=== PATIENT | male | born 1985 ===

== ENCOUNTER 2020-01-13 07:21 | Outpatient (CLI) | payer BC, SELFPAY ==
[2020-01-16 23:28] LABS: SARS-CoV-2 RNA Undetected (Undetected); SARS-CoV-2 Specimen Source Nasopharynx
== END 2020-01-13 07:41 ==
PROVIDERS: Visit Provider Family Medicine
DX: Z20.9 Contact with and (suspected) exposure to unspecified communicable disease (principal)
CPT/HCPCS: U0003

== ENCOUNTER 2020-04-13 15:14 | Outpatient (REF) | payer BC, SELFPAY ==
[2020-04-13 16:46] LABS: Abs Immature Grans 0.02 10^3/uL (0.0-0.06); Absolute Basophil Count 0.04 10^3/uL (0.0-0.2); Absolute Eosinophil Count 0.15 10^3/uL (0.0-0.7); Absolute Lymphocyte Count 2.15 10^3/uL (1.2-3.4); Absolute Monocyte Count 0.49 10^3/uL (0.1-0.8); Absolute Neutrophil Count 3.65 10^3/uL (1.2-6.7); Basophils % 0.6; Eosinophils % 2.3; HCT 41.2 % (40.0-50.0); HGB 14.4 g/dL (13.5-17.5); Immature Grans % 0.3; Lymphocytes % 33.1; MCH 30.1 pg (27.0-33.0); MPV 11.2 fL (8.0-11.0); Monocytes % 7.5; Neutrophils % 56.2; Nucleated RBC 0 %; Platelet Count 190 10^3/uL (130-400); RBC 4.79 10^6/uL (4.36-5.78); RDW 12.3 % (11.8-14.1); RDW-SD 38.8 fL
[2020-04-13 16:57] LABS: ALT 39 U/L (16-63); AST 22 U/L (15-37); Albumin 4.4 g/dL (3.4-5.0); Alkaline Phosphatase 66 U/L (46-116); BUN 23 mg/dL (7-18); Bilirubin, Total 0.3 mg/dL (0.2-1.0); Chloride 104 mmol/L (98-107); Glucose 96 mg/dL (74-106); Potassium 4.2 mmol/L (3.5-5.1); Sodium 138 mmol/L (136-145); Total Protein 7.4 g/dL (6.4-8.2)
[2020-04-27 10:55] LABS: IgA 239 mg/dL
[2020-04-27 10:56] LABS: Interpretation See Comments
[2020-04-27 10:57] LABS: Tissue Transglutaminase IgA >100.0 U/mL (<4.0)
== END 2020-04-13 15:34 ==
LOC: LBN 15:14
PROVIDERS: PCP Family Medicine; Visit Provider Surgery
DX: K58.0 Irritable bowel syndrome with diarrhea (principal); R10.84 Generalized abdominal pain; K52.9 Noninfective gastroenteritis and colitis, unspecified; K62.5 Hemorrhage of anus and rectum
CPT/HCPCS: 80053; 82784; 83516; 85025

== ENCOUNTER 2021-05-21 02:43 | Outpatient (CLI) | payer BC, SELFPAY ==
[2021-05-21 22:53] LABS: COVID-19 RT-PCR UVMMC Result Negative (Negative)
[2021-05-21 23:43] LABS: Influenza A RNA Result Positive (Negative); Influenza B RNA Result Negative (Negative); RSV RNA Result Negative (Negative)
== END 2021-05-21 02:44 | disposition home or self-care (01) ==
LOC: LBO 02:44
PROVIDERS: PCP Family Medicine; Visit Provider Neuromusculoskeletal Medicine & OMM
DX: Z20.822 Contact with and (suspected) exposure to COVID-19 (principal); R50.9 Fever, unspecified
CPT/HCPCS: 87449; 87631; U0003

== ENCOUNTER 2023-03-25 05:27 | Outpatient (CLI) | payer BC, SELFPAY ==
[2023-03-25 14:57] LABS: Abs Immature Grans 0.03 10^3/uL (0.0-0.06); Absolute Basophil Count 0.03 10^3/uL (0.0-0.2); Absolute Eosinophil Count 0.16 10^3/uL (0.0-0.7); Absolute Monocyte Count 0.63 10^3/uL (0.1-0.8); Absolute Neutrophil Count 3.76 10^3/uL (1.2-6.7); Basophils % 0.4; Eosinophils % 2.4; HCT 41.7 % (40.0-50.0); HGB 14.7 g/dL (13.5-17.5); Immature Grans % 0.4; Lymphocytes % 31.3; MCH 29.9 pg (27.0-33.0); MCHC 35.3 % (32.0-36.0); MCV 85 fL (80-95); MPV 10.3 fL (8.0-11.0); Monocytes % 9.4; Neutrophils % 56.1; Platelet Count 177 10^3/uL (130-400); RBC 4.91 10^6/uL (4.36-5.78); RDW 12.3 % (11.8-14.1); RDW-SD 37.7 fL; WBC 6.71 10^3/uL (4.4-10.8)
[2023-03-25 16:01] LABS: Anion Gap 8.3 mmol/L (3-11); BUN 15 mg/dL (7-18); CO2 27.7 mmol/L (21.0-32.0); Calcium 9.4 mg/dL (8.5-10.1); Chloride 101 mmol/L (98-107); Estimated GFR 100.66 (mL/min/1.73m2); Glucose 111 mg/dL (74-106); Potassium 4.2 mmol/L (3.5-5.1); Sodium 137 mmol/L (136-145)
== END 2023-03-25 05:28 | disposition home or self-care (01) ==
PROVIDERS: PCP Family Medicine; Visit Provider Podiatrist
DX: Z01.818 Encounter for other preprocedural examination (principal)
CPT/HCPCS: 36415; 80048; 85025